=== PATIENT | male | born 1980 | race Caucasian/White ===

== ENCOUNTER 2025-10-14 06:07 | Day surgery (SDC) | payer BC, SELFPAY ==
[2025-10-14] VITALS (9 sets, daily range): BP systolic 99–136; BP diastolic 61–99; PULSE 53–67; RESP 16; TEMP 37–38; O2SAT 90–98; BMI 23.4
[2025-10-14] MEDS: LACTATED RINGERS 1000 ML 1,000 ML 100 ML IV ×2 (06:15→09:30)
[2025-10-14] MEDS: BUPIVACAINE 0.25% 30 ML INJECTION (07:52)
--- NOTE | 2025-10-14 07:58 | SUR.OPER ---
PATIENT QUESTIONS ANSWERED SATISFACTORILY PREOPERATIVELY. PATIENT BROUGHT TO OR #1 PER CART. Patient positioned supine on OR #1 bed. The perioperative team tucked arms bilaterally at the patient sides in a neutral position. Final approval of positioning by surgeon.
[2025-10-14] MEDS: SODIUM CHLORIDE 0.9 % (FLUSH) 10 ML SYRINGE IVF (08:05)
--- NOTE | 2025-10-14 09:33 | P.ANES_ITS ---
Anesthesia Charges Start Date/Time Anesthesia Start Date: 10/14/25 Anesthesia Start Time: 07:26 Stop Date/Time Anesthesia Stop Date: 10/14/25 Anesthesia Stop Time: 09:29 Coding CPT Codes CPT Codes: ANESTH REPAIR OF HERNIA - 46122 ([id number]) P2 - PATIENT W/MILD SYST DISEASE, QK - TIP OUT WORKER 2-4 CNCRNT ANES PROC, QX - BOOK COVERER SVC W/ MD MED DIRECTION
--- NOTE | 2025-10-14 09:33 | W.ANESCHARGE ---
Anesthesia Charges Start Date/Time Anesthesia Start Date: 10/14/25 Anesthesia Start Time: 07:26 Stop Date/Time Anesthesia Stop Date: 10/14/25 Anesthesia Stop Time: 09:29 Coding CPT Codes CPT Codes: ANESTH REPAIR OF HERNIA - 11314 ([id number]) P2 - PATIENT W/MILD SYST DISEASE, QK - MARIONETTE PERFORMER 2-4 CNCRNT ANES PROC, QX - DURALUMIN MECHANIC SVC W/ MD MED DIRECTION
--- NOTE | 2025-10-14 09:38 | P.ANES_ITS ---
Anesthesia Charges Start Date/Time Anesthesia Start Date: 10/14/25 Anesthesia Start Time: 07:26 Stop Date/Time Anesthesia Stop Date: 10/14/25 Anesthesia Stop Time: 09:29 Coding CPT Codes CPT Codes: ANESTH SURG LOWER ABDOMEN - 01183 ([id number]) P2 - PATIENT W/MILD SYST DISEASE, QK - ADVANCED PRACTICE PSYCHIATRIC NURSE 2-4 CNCRNT ANES PROC, QX - KNOT CUTTER SVC W/ MD MED DIRECTION
--- NOTE | 2025-10-14 09:38 | W.ANESCHARGE ---
Anesthesia Charges Start Date/Time Anesthesia Start Date: 10/14/25 Anesthesia Start Time: 07:26 Stop Date/Time Anesthesia Stop Date: 10/14/25 Anesthesia Stop Time: 09:29 Coding CPT Codes CPT Codes: ANESTH SURG LOWER ABDOMEN - 00963 ([id number]) P2 - PATIENT W/MILD SYST DISEASE, QK - GREY GOODS MARKER 2-4 CNCRNT ANES PROC, QX - FOLDING RULES PRINTING MACHINE OPERATOR SVC W/ MD MED DIRECTION
--- NOTE | 2025-10-14 10:12 | P.GSOP_ITS ---
Operative Note Date of procedure: 10/14/25 Pre-op diagnosis: Left inguinal hernia Post-op diagnosis: Same Type of Procedure: Laparoscopic left inguinal hernia repair Indications: Patient is a 45-year-old male who presented to clinic with a symptomatic left inguinal hernia. Different treatment options were reviewed with recommendations to proceed to the operating room for repair. Risks and benefits of operative intervention were discussed at length with the patient. Risks included but was not limited to: Bleeding, infection, risk of damage to surrounding structures, possible need for additional procedures, possible need to convert to an open operation and postoperative complications such as pneumonia, pulmonary emboli or ID. All questions and concerns were addressed with the patient agreeing to proceed. Procedure Description: After discussing the risks and benefits of the procedure, the patient signed informed consent.? The operative site was marked and the patient was brought to the operating room and placed on the operating table in supine position.? Care was taken to pad the patient's pressure points.?? The patient was then intubated by anesthesia.?? The operative site was then prepped and draped in the usual sterile fashion.? A time-out was then performed. A curvilinear incision was made below the umbilicus. Dissection was carried down to subcutaneous tissue until the anterior rectus fascia was encountered. This was incised off the midline. The rectus muscles were then retracted exposing the posterior fascia. A space maker port with a dissecting balloon was then introduced. The preperitoneal space was inflated under direct vision. The balloon was then removed and the preperitoneal space insufflated. A 10 mm 0 degree scope was then advanced and the area was surveyed for bleeding. Dissection began on the left side. Win's ligament and the pubic bone was exposed medially. Following this dissection was carried out laterally. A large indirect defect was noted. The sac was dissected free from the cord structures using a combination of sharp and blunt dissection. Once the sac was completely reduced, the cord structures were dissected circumfrentially and a piece of Parietex mesh for the appropriate side was placed into the abdomen. This was pos itioned around the cord structures. A Tacker was used to attach the mesh medially at Win's ligament. A single lateral tack was also placed. Once this was completed the sac was placed on top of the mesh and the preperitoneal space desufflated under direct vision. The ports were removed. The fascia from the infraumbilical port was closed with 0 Vicryl. The skin incisions were closed with absorbable subcuticular suture. Sterile dressings were then applied. The scrotum was examined with history of 1 atrophied left testicle and a right testicle, both were present. Instrument sponge and needle counts were correct at the end of the case. Findings: Indirect left inguinal hernia Anesthesia: GETA Surgeon: Corrine Villar MD Estimated blood loss (mL): 5 Condition: stable Disposition: PACU
== END 2025-10-14 10:51 | disposition home or self-care (01) ==
PROVIDERS: Visit Provider Surgery
PROC: (CPT 49650; principal; 2025-10-14 07:30)
DX: K40.90 Unilateral inguinal hernia, without obstruction or gangrene, not specified as recurrent (principal)
CPT/HCPCS: 49650; 00830; 00840; C1781; J0665; J0690; J1100; J2250; J2405; J2704; J2710; J3010; J7120